=== PATIENT | female | born 1980 | race Hispanic/Latino ===

== ENCOUNTER 2017-03-13 11:11 | Observation (INO) | payer OTHER ==
[~2017-03-13] VITALS: Ht 152.4 cm; Wt 84.0 kg
[2017-03-13 11:44] VITALS: BP 141/88
[2017-03-13] MEDS ORDERED: ALPRAZOLAM 0.5 MG TABLET PO ONE (15:00)
[2017-03-13] MEDS ORDERED: KETOROLAC TROMETHAMINE 30MG/ML IV PRN (15:00)
[2017-03-13] MEDS ORDERED: METHYLPREDNISOLONE SOD SUCC 125MG/2ML VIAL IVP SCH (15:00)
[2017-03-13 15:07] LABS: HEMATOCRIT 40.3 % (36-48); MEAN CORPUSCULAR HEMOGLOBIN 29.3 pg (27.0-33.0); MEAN CORPUSCULAR HGB CONC 34.3 g/dL (32.0-36.0); MEAN CORPUSCULAR VOLUME 85.6 fL (79-99); PLATELET COUNT (AUTO) 419 K/uL (130-400); RED BLOOD CELL COUNT(AUTO) 4.72 MIL/uL (4.00-5.50); RED CELL DISTRIBUTION WIDTH 12.8 % (11.0-15.5); WHITE BLOOD COUNT (AUTO) 11.6 K/uL (4.8-10.8)
[2017-03-13 15:26] LABS: CREATININE 1.1 mg/dL (0.5-1.5); CRP QUANTITATIVE 131.2 mg/L (0.00-9.0); POTASSIUM 3.9 mmol/L (3.5-5.1)
[2017-03-13] MEDS ORDERED: PHARMACY COMMUNICATION MISC SCH (15:30)
[2017-03-13 16:18] VITALS: BP 132/75
[2017-03-13 16:38] LABS: ERYTHROCYTE SEDIMENTATION RATE 83 MM/HR (0-15)
[2017-03-13] MEDS ORDERED: LIDOCAINE 1%-EPI 1:100,000 20 ML VIAL IJ SCH (17:45)
[2017-03-13] MEDS: MORPHINE SULFATE 2 MG/ML 1ML SYG IVP PRN (18:01)
[2017-03-13 19:58] LABS: GLUCOSE,BODY FLUID 196 mg/dL (1-40)
[2017-03-13 20:00] VITALS: BP 125/77
[2017-03-13 20:43] LABS: APPEARANCE BODY FLUID CLOUDY (CLEAR); COLOR,BODY FLUID YELLOW (LT YELLOW); SPECIMENTYPE,BODY FLUID SYNOVIAL; TOTAL VOLUME,BODY FLUID 30 mL
[2017-03-13 20:44] LABS: BODY FLUID RBC 220 /cu. mm.; BODY FLUID WBC 23375 /cu. mm.
[2017-03-13 20:52] LABS: BF LYMPHOCYTE 4 %
[2017-03-13] MEDS: ALPRAZOLAM 0.5 MG TABLET PO SCH (21:21)
[2017-03-14] VITALS: BP 122/62
[2017-03-14 04:00] VITALS: BP 107/61
[2017-03-14 07:43] VITALS: BP 145/80
[2017-03-14] MEDS: ALPRAZOLAM 0.5 MG TABLET PO SCH (08:39)
[2017-03-14] MEDS: MORPHINE SULFATE 2 MG/ML 1ML SYG IVP PRN (08:42)
[2017-03-14 11:50] VITALS: BP 131/73
== END 2017-03-14 14:10 | disposition home or self-care (01) ==
LOC: EDH 11:11 → 4AH 11:39
PROVIDERS: ADMIT Internal Medicine Hematology & Oncology; ATTEND Internal Medicine Hematology & Oncology
DX: M25.462 Effusion, left knee (principal); R26.2 Difficulty in walking, not elsewhere classified; Z85.42 Personal history of malignant neoplasm of other parts of uterus; Z90.710 Acquired absence of both cervix and uterus
CPT/HCPCS: 36415; 73721; 80048; 82945; 85027; 85651; 86141; 87071; 87076; 87205; 89051; 89060; 96374; 96375; 96376; 99285; G0378 ×27; J2930; J3490

== ENCOUNTER → 2023-05-10 | Outpatient (CLI) | payer OTHER | END | disposition home or self-care (01) | LOC: RAH 10:11 | PROVIDERS: ATTEND Internal Medicine Hematology & Oncology | DX: Z12.31 Encounter for screening mammogram for malignant neoplasm of breast (principal) | CPT/HCPCS: 77067 ==

== ENCOUNTER → 2024-03-18 | Outpatient (CLI) | payer OTHER ==
--- NOTE | 2024-03-18 10:41 | HMCIMG ---
Exam Type: US ABDOMINAL RUQ\E\LTD Clinical Information: elevated lfts Comparison: None Findings: The liver shows fatty infiltration and is enlarged, measuring 17 cm and is otherwise unremarkable. Doppler evaluation shows patent portal and hepatic veins. The gallbladder shows no significant abnormalities. Specifically, no calculi are seen. No bile duct dilatation is noted. The gallbladder wall measures 2 mm. The common bile duct measures 4 mm. The right kidney measures 10.4 x 5.6 cm- it shows no hydronephrosis or calculi, masses or other abnormalities. The pancreas is unremarkable. The aorta and inferior vena cava show no significant abnormalities. IMPRESSION: FATTY LIVER INFILTRATION AND HEPATOMEGALY. OTHERWISE NORMAL RIGHT UPPER QUADRANT ABDOMINAL ULTRASOUND.
== END | disposition home or self-care (01) ==
LOC: RAH 07:48
DX: K76.0 Fatty (change of) liver, not elsewhere classified (principal); R74.01 Elevation of levels of liver transaminase levels
CPT/HCPCS: 76705

== ENCOUNTER → 2024-05-29 | Outpatient (CLI) | payer OTHER ==
[2024-05-29 09:30] LABS: BASOPHILS # (AUTO) 0.05 K/uL (0.00-0.20); BASOPHILS % (AUTO) 0.8 % (0.0-5.0); EOSINOPHILS # (AUTO) 0.23 K/uL (0.00-0.70); EOSINOPHILS % (AUTO) 3.5 % (0.0-8.0); HEMATOCRIT 44.6 % (36-48); IMMATURE GRANULOCYTE ABSOLUTE 0.02 K/uL (0-1); LYMPHOCYTES # (AUTO) 2.6 K/uL (1.0-4.8); LYMPHOCYTES % (AUTO) 39.4 % (21.0-51.0); MEAN CORPUSCULAR HEMOGLOBIN 30.2 pg (27.0-33.0); MEAN CORPUSCULAR HGB CONC 33.4 g/dL (32.0-36.0); MEAN CORPUSCULAR VOLUME 90.3 fL (79-99); MONOCYTES # (AUTO) 0.4 K/uL (0.1-1.0); MONOCYTES % (AUTO) 6.3 % (3.0-13.0); NEUTROPHILS # (AUTO) 3.3 K/uL (1.8-7.7); NEUTROPHILS % (AUTO) 49.7 % (40.0-77.0); PLATELET COUNT (AUTO) 286 K/uL (130-400); RED BLOOD CELL COUNT(AUTO) 4.94 MIL/uL (4.00-5.50); RED CELL DISTRIBUTION WIDTH 11.8 % (11.0-15.5); WHITE BLOOD COUNT (AUTO) 6.5 K/uL (4.8-10.8)
[2024-05-29 10:14] LABS: ALBUMIN 3.6 g/dL (3.5-5.0); BILIRUBIN,TOTAL 0.4 mg/dL (0.2-1.0); CREATININE 0.5 mg/dL (0.5-1.0); POTASSIUM 3.7 mmol/L (3.5-5.1); THYROID STIMULATING HORMONE 1.99 uIU/mL (0.36-3.74); TOTAL PROTEIN, SERUM 8.1 g/dL (6.0-8.3)
[2024-05-29 10:19] LABS: HEMOGLOBIN A1C 5.4 % (4.0-6.0)
== END | disposition home or self-care (01) ==
LOC: LAB 08:28
PROVIDERS: ATTEND Surgery
DX: E66.01 Morbid (severe) obesity due to excess calories (principal); R93.2 Abnormal findings on diagnostic imaging of liver and biliary tract; G43.909 Migraine, unspecified, not intractable, without status migrainosus; M05.80 Other rheumatoid arthritis with rheumatoid factor of unspecified site; R14.0 Abdominal distension (gaseous)
CPT/HCPCS: 36415; 80053; 80061; 82306; 82607; 82728; 82746; 83036; 83540; 83550; 84439; 84443; 84590; 85025

== ENCOUNTER → 2024-07-24 | Outpatient (CLI) | payer OTHER ==
[2024-07-25 08:13] LABS: RHEUMATOID ARTHRITIS FACTOR 25.7 IU/mL (<14.0)
== END | disposition home or self-care (01) ==
LOC: LAB 14:05
PROVIDERS: ATTEND Nurse Practitioner Family
DX: M06.9 Rheumatoid arthritis, unspecified (principal); D84.81 Immunodeficiency due to conditions classified elsewhere
CPT/HCPCS: 36415; 85651; 86038; 86200; 86431

== ENCOUNTER → 2024-09-18 | Outpatient (CLI) | payer OTHER | END | disposition home or self-care (01) | LOC: RAH 08:18 | DX: Z12.31 Encounter for screening mammogram for malignant neoplasm of breast (principal) | CPT/HCPCS: 77067 ==

== ENCOUNTER → 2024-11-26 | Outpatient (CLI) | payer OTHER ==
[2024-11-26 08:13] LABS: IMMATURE GRANULOCYTE ABSOLUTE 0.02 K/uL (0-1); NUCLEATED RED BLOOD CELLS 0.0 % (0.0-0.19); PLATELET COUNT (AUTO) 262 K/uL (130-400); RED BLOOD CELL COUNT(AUTO) 4.91 MIL/uL (4.00-5.50); RED CELL DISTRIBUTION WIDTH 12.0 % (11.0-15.5); WHITE BLOOD COUNT (AUTO) 11.0 K/uL (4.8-10.8)
[2024-11-26 08:49] LABS: ASPARTATE AMINOTRANSFERASE 25.0 U/L (10-37); CREATININE 0.4 mg/dL (0.5-1.0); GLOMERULAR FILTR. RATE CALC 125.0 mL/min (>90); GLUCOSE,RANDOM 109.0 mg/dL (70-105); LDL DIRECT 137.0 mg/dL (0-99); SODIUM SERUM 141.0 mmol/L (136-145); TOTAL PROTEIN, SERUM 7.5 g/dL (6.0-8.3); UREA NITROGEN, BLOOD 12.0 mg/dL (7-18)
== END | disposition home or self-care (01) ==
LOC: LAB 07:44
PROVIDERS: ATTEND Internal Medicine Gastroenterology
DX: E66.01 Morbid (severe) obesity due to excess calories (principal); Z68.41 Body mass index [BMI] 40.0-44.9, adult; Z79.899 Other long term (current) drug therapy
CPT/HCPCS: 36415; 80053; 80061; 83036; 84443; 85025

== ENCOUNTER → 2024-12-23 | Outpatient (CLI) | payer OTHER ==
--- NOTE | 2024-12-23 15:08 | HMCIMG ---
BILATERAL BREAST ULTRASOUND: Graft clinical history: Dense breast Finding: Real-time examination of the both breasts demonstrates heterogeneous echotexture throughout both the breasts without evidence of focal solid mass. The left breast has 2 small cyst seen. At 2:00 and cyst measuring 0.4 x 0.3 x 0.4 cm. At 3:00 there is a small cyst measuring 0.3 x 0.3 cm. There are benign axillary lymph node seen on the right it measures 1.0 x 0.5 x 1.3 cm. On the left the largest lymph node measuring 1.5 x 0.6 x 1.7 cm.. IMPRESSION: Fibrocystic changes in the left breast No solid mass seen. I would recommend annual mammography with tomography FINAL ASSESSMENT: ACR: BI-RAD- 2. Benign Finding.
--- NOTE | 2024-12-23 15:10 | HMCIMG ---
DIGITAL left DIAGNOSTIC MAMMOGRAM Technique: The digital mammographic examination left breast in craniocaudal, mediolateral oblique views along with CAD was obtained. Coned-down compression of the left breast upper outer quadrant is also obtained. History: This is a 44 years year-old female 0, para0 Ab0 . Patient has no family history of breast cancer. Patient has no complaint Reference:Prior mammogram from 09/18/2024, 05/10/2023 are available.. Breast composition: Breast composition B: There are scattered areas of fibroglandular density. Finding: The digital mammographic examination of left breast in craniocaudal and mediolateral oblique view along with CAD demonstrates 2 small oil cyst which ultrasound also demonstrate to be a cyst at 2:00 and 3:00.. There is no evidence of any dendritic mass, cluster microcalcification or architectural distortion. The retromammary fat appears to be normal. IMPRESSION: 2 small oil cyst in the left breast. NO RADIOGRAPHIC EVIDENCE OF MALIGNANT CHANGES. WE WOULD RECOMMEND ANNUAL FOLLOW UP WITH TOMOSYNTHESIS UNLESS OTHERWISE CLINICALLY INDICATED. FINAL ASSESSMENT: ACR: BI-RAD- 2. Benign Finding. NOTE: IF A WORK-UP OF THIS PATIENT LEADS TO A BIOPSY, PLEASE FORWARD A COPY OF THE PATHOLOGY REPORT TO OUR OFFICE REQUIRED BY [facility] EFFECTIVE NOVEMBER 12, 1993. A NEGATIVE MAMMOGRAM SHOULD NOT PRECLUDE BIOPSY OF A CLINICALLY PALPABLE SUSPICIOUS MASS, 10% OF BREAST CANCERS ARE MAMMOGRAPHICALLY OCCULT. THIS MAMMOGRAPHY FACILITY IS FULLY ACCREDITED BY THE [employer]OD AND [employer]UG [employer] (FDA). THANK YOU FOR THIS REFERRAL.
== END | disposition home or self-care (01) ==
LOC: RAH 13:45
DX: N60.12 Diffuse cystic mastopathy of left breast (principal); N60.02 Solitary cyst of left breast; R92.323 Mammographic fibroglandular density, bilateral breasts; R92.8 Other abnormal and inconclusive findings on diagnostic imaging of breast
CPT/HCPCS: 77065